=== PATIENT | female | born 1990 | race Caucasian/White ===

== ENCOUNTER 2020-02-13 09:40 | Outpatient (REF) | payer OTHER, SELFPAY ==
[2020-02-13 10:26] LABS: COVID-19 Test Positive (Negative)
== END 2020-02-13 09:41 | disposition home or self-care (01) ==
LOC: HO.LAB 09:40
PROVIDERS: Visit Provider Internal Medicine
DX: Z20.828 Contact with and (suspected) exposure to other viral communicable diseases (principal)
CPT/HCPCS: 87635

== ENCOUNTER 2021-08-04 17:05 | Outpatient (REF) | payer OTHER, SELFPAY ==
--- NOTE | ~2021-08-04 | XR_ITS ---
EXAMINATION: XR HAND, RIGHT CLINICAL INFORMATION: Crush injury to first digit COMPARISON: None TECHNIQUE: PA, lateral, and oblique views of the right hand. FINDINGS: The bones and soft tissues are normal. No fracture. Alignment is anatomic. Joint spaces are maintained. No erosions or soft tissue calcifications. XR/XR hand RT min 3V IMPRESSION: Normal right hand.
== END 2021-08-04 17:06 | disposition home or self-care (01) ==
LOC: HO.XRAY 17:05
PROVIDERS: Visit Provider Physician Assistant
DX: S67.01XD Crushing injury of right thumb, subsequent encounter (principal)
CPT/HCPCS: 73130